=== PATIENT | male | born 1985 | race African-American/Black ===

== ENCOUNTER 2017-08-30 08:46 | Emergency (ER) | payer SELFPAY ==
[~2017-08-30] VITALS: Ht 185.4 cm; Wt 70.0 kg
[2017-08-30 08:48] VITALS: BP 136/80; PULSE 82; RESP 18; TEMP 98.1; O2SAT 99
[2017-08-30] MEDS ORDERED: PRED20 PO (09:02)
[2017-08-30] MEDS ORDERED: ZITHTAB PO (09:02)
--- NOTE | 2017-08-30 09:03 | PD ---
HPI Chief Complaint: Cold / Flu Symptoms Time Seen by Provider: 08:53 Travel History International Travel<30 days: No Contact w/Intl Traveler<30days: No Traveled to known affect area: No History of Present Illness HPI The patient is a 32-year-old -[place] male who presents to the emergency department for cough and cold symptoms of 2 days duration. The patient states he had cough and cold symptoms for approximately 1 month that included cough, congestion, postnasal drip, nausea, vomiting, diarrhea. The patient took a few antibiotics of a friend's and his symptoms resolved. However , less than 1 week his symptoms are returning. He does note a productive cough producing yellow sputum, mild postnasal drip, congestion, but denies any current nausea, vomiting, or diarrhea. He denies any history of HIV or autoimmune disorders. He denies any headache, fever, chills, or sweats. Symptoms are moderate. He does have a history of tobacco use, last cigarette use was last night. [facility] Social History Alcohol Use: No Tobacco Use: Yes Substance Use: No Allergies-Medications (Allergen,Severity, Reaction): Coded Allergies: No Known Allergies (Unverified , 04/20/14) Reported Meds & Prescriptions Reported Meds & Active Scripts Active No Active Prescriptions or Reported Medications Review of Systems Except as stated in HPI: all other systems reviewed are Neg General / Constitutional: No: Fever HENT: Positive: Congestion Cardiovascular: Positive: Other (Chest congestion), No: Chest Pain or Discomfort Respiratory: Positive: Cough Gastrointestinal: No: Nausea, Vomiting, Diarrhea, Abdominal Pain Musculoskeletal: No: Myalgias, Arthralgias Skin: No Rash Physical Exam Narrative GENERAL: Awake, alert, pleasant 32-year-old male who appears his stated age and is in no acute respiratory distress. SKIN: Focused skin assessment warm/dry. HEAD: Atraumatic. Normocephalic. EYES: Pupils equal and round. No scleral icterus. No injection or drainage. ENT: No nasal bleeding or discharge. Mucous membranes pink and moist. NECK: Trachea midline. No JVD. CARDIOVASCULAR: Regular rate and rhythm. No murmur appreciated. RESPIRATORY: No accessory muscle use. Clear to auscultation. Breath sounds equal bilaterally. MUSCULOSKELETAL: No obvious deformities. No clubbing. No cyanosis. No edema. NEUROLOGICAL: Awake and alert. No obvious cranial nerve deficits. Motor grossly within normal limits. Normal speech. PSYCHIATRIC: Appropriate mood and affect; insight and judgment normal. Data Data Last Documented VS Vital Signs Date Time Temp Pulse Resp B/P (MAP) Pulse Ox O2 Delivery O2 Flow Rate FiO2 08/30/17 08:48 98.1 82 18 136/80 (98) 99 MDM Medical Decision Making Medical Screen Exam Complete: Yes Emergency Medical Condition: Yes Medical Record Reviewed: Yes Differential Diagnosis Differential diagnosis includes URI, viral syndrome, bronchitis, pneumonia, HIV , mononucleosis, pneumonitis. Narrative Course The patient will be placed on prednisone and Zithromax. He is advised to follow -up with a primary physician. He is encouraged to stop smoking. Return if symptoms worsen or progress. Diagnosis Primary Impression: Bronchitis Patient Instructions: General Instructions Additional Instructions: Medications as directed. I encourage you to stop smoking. Follow-up with a primary physician. Return if symptoms worsen or progress. Med/Other Pt SpecificInfo: Prescription(s) given Scripts Prednisone (Prednisone) 20 Mg Tab 40 MG PO DAILY, #10 TAB 0 Refills Take 40 mg (2 tablets) daily for 5 days Prov: Jones Dangelo MD 08/30/17 Azithromycin (Zithromax Z-Hira) 250 Mg Dspk 250 MG PO DIRECTED for Infection, #1 DSPK 0 Refills 500 MG (2 tabs) day 1, then 1 tab days 2-5. Prov: Jones Dangelo MD 08/30/17 Disposition: 01 DISCHARGE HOME Condition: Stable Jones Dangelo MD August 30, 2017 09:03
== END 2017-08-30 09:11 | disposition home or self-care (01) ==
LOC: NEPD 08:46
DX: J40 Bronchitis, not specified as acute or chronic (principal); Z72.0 Tobacco use
CPT/HCPCS: 99283